=== PATIENT | female | born 1985 | race Caucasian/White ===

== ENCOUNTER 2025-08-28 10:54 | Emergency (ER) | payer OTHER, SELFPAY ==
[2025-08-28 11:02] VITALS: BP 127/96; PULSE 86; RESP 16; TEMP 37.1; O2SAT 100
--- NOTE | 2025-08-28 12:01 | ED_ITS ---
HPI - General Adult General Chief complaint: Unspecified Stated complaint: Migraine/Itching/Bladder Issues Time Seen by Provider: 08/28/25 11:30 Source: patient and RN notes reviewed Mode of arrival: ambulatory Limitations: no limitations History of Present Illness HPI narrative: 40 year old female patient presents today complaining of left frontal/parietal migraine that started yesterday with nausea, resolved after sleeping last night without any medication or treatment. At around midnight last night, she states that her left arm, left leg, and sporadically her right leg, have been experiencing some pulsing, burning, and buzzing sensations through the day. They have slightly improved since onset. She denies any additional symptoms such as chest pain, shortness of breath, nausea, vomiting, vision changes. She also complains of 3 day history of frequency, urgency, and suprapubic pressure. Reports she stopped caffeine consumption 4 days ago. Related Data Home Medications ?Medication ?Instructions ?Recorded ?Confirmed ?Last Taken ?Type tacrolimus 0.1 % topical ointment topical 08/28/25 Un known History Allergies Allergy/AdvReac Type Severity Reaction Status Date / Time No Known Allergies Allergy Verified 08/28/25 11:33 [facility] Comments At time of signature, I have reviewed and agree with nursing past medical, surgical, social and family history unless otherwise noted. Please see nursing chart for further information. There is no relevant family history pertinent to the presenting complaint Exam Narrative: GENERAL: Well-appearing, well-nourished, and in no acute distress. HEAD: Normocephalic, atraumatic. EYES: EOMI. No redness or drainage. Conjunctivae normal. ENT: Mucous membranes pink and moist. Nares clear. No rhinorrhea. TMs normal bilaterally. Throat normal. Uvula midline. NECK: Normal AROM. Supple. No lymphadenopathy. CHEST: No respiratory distress. Clear to auscultation. HEART: Regular rate and rhythm. No murmur appreciated. Normal peripheral pulses. ABDOMEN: Soft, nontender, nondistended, normal active bowel sounds. MUSCULOSKELETAL: No bony tenderness. EXTREMITIES: Normal range of motion. No edema. SKIN: Warm, dry, no rash. Capillary refill normal. Normal skin turgor. NEURO: No focal deficits. Alert and oriented x3. Gait steady. Hand pie maker machine equal and strong. 5/5 strength in BLE. Nose-finger test normal. Heel-nguyễn test normal. PSYCH: Normal affect. No signs of depression or anxiety. Course Course Level of Care: Express Care Visit Vital Signs Vital signs: Vital Signs Temperature 98.8 F 08/28/25 11:02 Pulse Rate 86 08/28/25 11:02 Respiratory Rate 16 08/28/25 11:02 Blood Pressure 127/96 H 08/28/25 11:02 Pulse Oximetry 100 08/28/25 11:02 Oxygen Delivery Room Air 08/28/25 11:02 Temperature 98.8 F 08/28/25 11:02 Pulse Rate 86 08/28/25 11:02 Respiratory Rate 16 08/28/25 11:02 Blood Pressure 127/96 H 08/28/25 11:02 Pulse Oximetry 100 08/28/25 11:02 Oxygen Delivery Room Air 08/28/25 11:02 Reviewed Medical Decision Making MDM Narrative Medical decision making narrative: 10 year old female patient presents today complaining of left frontal/parietal migraine that started yesterday with nausea, resolved after sleeping last night without any medication or treatment. At around midnight last night, she states that her left arm, left leg, and sporadically her right leg, have been experiencing some pulsing, burning, and buzzing sensations through the day. They have slightly improved since onset. She denies any additional symptoms such as chest pain, shortness of breath, nausea, vomiting, vision changes. She also complains of 3 day history of frequency, urgency, and suprapubic pressure. Reports she stopped caffeine consumption 4 days ago. Patient's exam, including thorough neuro exam, is completely normal. UA shows 2+ ketones and trace blood. Patient is at the very end of her menstrual cycle. At this time, we will wait for the urine culture results to treat for UTI. Offered ER transfer for further evaluation of patient's leg and arm symptoms. Patient declines at this time. States she will proceed there if symptoms worsen or persist. VSS. Differential Diagnosis Differential Diagnosis: complex migraine, cluster headache, UTI, vaginitis Vital Signs Vital Signs: Vital Signs Temperature 98.8 F 08/28/25 11:02 Pulse Rate 86 08/28/25 11:02 Respiratory Rate 16 08/28/25 11:02 Blood Pressure 127/96 H 08/28/25 11:02 Pulse Oximetry 100 08/28/25 11:02 Oxygen Delivery Room Air 08/28/25 11:02 Temperature 98.8 F 08/28/25 11:02 Pulse Rate 86 08/28/25 11:02 Respiratory Rate 16 08/28/25 11:02 Blood Pressure 127/96 H 08/28/25 11:02 Pulse Oximetry 100 08/28/25 11:02 Oxygen Delivery Room Air 08/28/25 11:02 Lab Data Lab results reviewed: Yes I reviewed the patient's lab results. Labs: Lab Results 08/28/25 Range/Units 12:05 POC Urine Color Yellow POC Urine Clarity Clear POC Urine pH 5.5 POC Ur Specif [place] 1.010 POC Urine Protein Negative (Negative) POC Ur Glucose (UA) Negative (Negative) POC Urine Ketones 2+ (Negative) POC Urine Blood Trace (Negative) POC Urine Nitrite Negative (Negative) POC Urine Bilirubin Negative (Negative) POC Urine Urobilinogen 0.2 POC U Leukocyte Esteras Negative (Negative) Critical Care Time Critical Care Time Critical Care Time: No Discharge Plan Discharge Clinical Impression: Migraine Qualifiers: Migraine type: unspecified Status migrainosus presence: without status migrainosus Intractability: not intractable Qualified Code(s): G43.909 - Migraine, unspecified, not intractable, without status migrainosus Patient Disposition: Home Condition: Stable Instructions: Migraine Headache (ED) Additional Instructions: You have declined transfer to the ER today. If you change your mind or symptoms worsen to include chest pain, shortness of breath, vision changes, severe headache that is not consistent with your migraines, weakness, please go to the ER immediately further evaluation. Patient Language: Com[place]an Prescriptions: No Action tacrolimus 0.1 % ointment TOPICAL Follow-up/Referrals: PHYSICIAN,[employer] [facility] [facility] [Primary Care Provider, Internal Medicine] Stand Alone Forms: Work/School Release IP Time of Disposition: 11:55
[2025-08-28 12:08] LABS: EDUAAPPEAR Clear; EDUABILI Negative (Negative); EDUABLOOD Trace (Negative); EDUACOLOR1 Yellow; EDUAGLUCOSE Negative (Negative); EDUAKETONE 2+ (Negative); EDUALEUKO Negative (Negative); EDUANITRATE Negative (Negative); EDUAPH 5.5; EDUAPROTEIN Negative (Negative); EDUASPGRAVITY 1.010; EDUAUROBILI 0.2
== END 2025-08-28 12:00 | disposition home or self-care (01) ==
PROVIDERS: Emergency Provider Nurse Practitioner
DX: G43.909 Migraine, unspecified, not intractable, without status migrainosus (principal); R35.0 Frequency of micturition; R39.15 Urgency of urination
CPT/HCPCS: 81003; 87086; 99213; G0463

== ENCOUNTER 2025-08-28 19:20 | Observation (INO) | payer OTHER, SELFPAY ==
--- NOTE | ~2025-08-28 | MR_ITS ---
EXAMINATION: MR brain/brain stem wo con DATE: 08/30/2025 10:21 INDICATION: Left-sided migraine headache. Left-sided numbness. TECHNIQUE: Magnetic resonance imaging (MRI) of the brain and brainstem was performed without intravenous contrast. COMPARISON: None. FINDINGS: There are scattered areas of nonspecific increased T2-weighted signal intensity in the cerebral white matter. There is no intracranial hemorrhage, acute infarction, or abnormal intracranial mass lesion. The ventricles are normal in size. The orbits are normal. There is mild mucosal thickening in the paranasal sinuses. The mastoid air cells are normal. IMPRESSION: 1. Mild nonspecific cerebral white matter disease. The differential diagnosis includes premature chronic small vessel ischemic disease (especially if the patient has cardiovascular risk factors), demyelinating disease such as multiple sclerosis, drug abuse, vasculitis, or reactive astrocytosis (gliosis) secondary to nonspecific etiology. Reviewed, dictated and finalized at location E. IMPRESSION: 1. Mild nonspecific cerebral white matter disease. The differential diagnosis i ncludes premature chronic small vessel ischemic disease (especially if the shivani ent has cardiovascular risk factors), demyelinating disease such as multiple sc lerosis, drug abuse, vasculitis, or reactive astrocytosis (gliosis) secondary t o nonspecific etiology.
--- NOTE | ~2025-08-28 | XR_ITS ---
Examination: XR chest 1V portable Clinical History: Weakness Comparison: None Technique: Portable AP Findings: Heart size normal. Lungs clear. No acute bony abnormality. Round radiopaque object overlying central abdomen, presumably external but recommend correlation. IMPRESSION: 1. No acute cardiopulmonary findings given portable technique. Reviewed, dictated and finalized at location R.
--- NOTE | ~2025-08-28 | CT_ITS ---
EXAMINATION: CT chest abdomen pelvis w con DATE: 08/29/2025 10:11 INDICATION: Chest pain. Leukocytosis. TECHNIQUE: Computed tomography (CT) of the chest, abdomen, and pelvis was performed with 100 mL Omnipaque 350 intravenous contrast. Automated exposure control and iterative reconstruction technique were employed. The dose-length product was 465.84 mGy-cm. COMPARISON: None FINDINGS: CHEST CT: There is no pneumonia or pleural effusion. The heart size is normal. No pericardial effusion. There is mild thoracic spondylosis. ABDOMEN/PELVIS CT: The liver, gallbladder, spleen, pancreas, adrenal glands, and right kidney are normal. There are cysts in left kidney measuring up to 10 mm. There are no dilated loops of bowel. The appendix is normal. There are no pathologically enlarged lymph nodes. There is no free intraperitoneal fluid. There is mild osteoarthritis of the hips. IMPRESSION: 1. No etiology for the patient's symptoms. Reviewed, dictated and finalized at location E.
[2025-08-28 19:20] VITALS: BP 132/86; PULSE 103; PULSE 94; RESP 20; TEMP 36.8; O2SAT 100
--- NOTE | 2025-08-28 19:34 | ECG_ITS ---
Test Date: 2025-08-28 19:40:18 Measurements Intervals [place] Rate: 83 P: 62 TN: 190 QRS: -11 QRSD: 115 T: 30 QT: 350 QTc: 413 Interpretive Statements SINUS RHYTHM WITH MARKED SINUS ARRHYTHMIA INCOMPLETE RIGHT BUNDLE BRANCH BLOCK BASELINE ARTIFACT- III, V6 BORDERLINE ECG No previous ECG available for comparison Electronically Signed On 08-29-2025 06:15:29 CDT by Torey Davila D.O.
[2025-08-28 20:01] LABS: Hematocrit 41.0 % (35.0-49.0); Hemoglobin 13.9 g/dL (12.0-15.0); Immature Granulocyte Percent A 0.4 % (0.0-0.0); Lymphocytes Absolute Auto 2.97 K/mm3 (1.10-4.50); Mean Corpuscular HGB Conc 33.9 g/dL (32-36); Mean Corpuscular Hemoglobin 30.8 pg (27.0-31.0); Mean Corpuscular Volume 90.7 fL (78.0-102.0); Nucleated Red Blood Cells Absolute Auto 0.00 K/mm3 (0.00-0.00); Nucleated Red Blood Cells Perc 0.0 % (0-0.0); Platelet Count Result 336 K/mm3 (150-420); Red Blood Count 4.52 M/mm3 (4.20-5.40); White Blood Count 14.4 K/mm3 (4.8-10.8)
[2025-08-28] MEDS: SODIUM CHLORIDE 0.9% IV 1,000 ML 999 ML IV CONT (20:12)
[2025-08-28 20:24] LABS: Alanine Aminotransferase 19 U/L (6-35); Albumin Level 4.4 g/dL (3.5-5.1); Alkaline Phosphatase 54 U/L (38-126); Anion Gap 13 mmol/L (4-12); Aspartate Amino Transferase 25 U/L (14-36); Bilirubin,Total 0.6 mg/dL (0.2-1.3); Blood Urea Nitrogen 12 mg/dL (7-17); Calcium 9.4 mg/dL (8.4-10.2); Carbon Dioxide 21 mmol/L (22-30); Chloride 104 mmol/L (98-107); Estimated CRCL calculation 88 ml/min; Estimated Glomerular Filt Rate > 60; Glucose 173 mg/dL (65-110); Osmolality Calculated 289 mOsm/kg (285-295); Potassium 3.3 mmol/L (3.4-5.0); Sodium 138 mmol/L (137-145); Total Protein 7.0 g/dL (6.3-8.2)
[2025-08-28 20:31] LABS: Add Urine Microscopic? NO; Appearance Urine Clear (Clear); Glucose Urine UA Negative (Negative); Leukocyte Esterase Ur Negative LEU/UL (Negative); Nitrate Urine Negative (Negative); Specific Grav Ur <= 1.005 (1.010-1.020)
[2025-08-28 20:40] LABS: Pregnancy On Board Control Positive
[2025-08-28 20:43] LABS: Influenza A QL RT-PCR Negative (Negative); Influenza B QL RT-PCR Negative (Negative); RSV RNA, RT-PCR Negative (Negative); SARS-CoV-2 RNA PCR Negative (Negative)
[2025-08-28 21:01] LABS: Troponin I < 0.012 ng/mL (0.000-0.034)
[2025-08-28] MEDS: POTASSIUM BICARBONATE 25 MEQ TABEF 50 MEQ PO (21:13)
--- NOTE | 2025-08-28 21:16 | ED_ITS ---
HPI - General Adult General Chief complaint: Anxiety Stated complaint: palpitations Time Seen by Provider: 08/28/25 19:34 Source: patient and family Mode of arrival: ambulatory Limitations: no limitations History of Present Illness HPI narrative: This is a 41-year-old female with no significant past medical history presents with some feeling faint and weakness and anxious. There is currently no nausea vomiting no fever chills no chest pain or shortness of breath no palpitations no diarrhea constipation no dysuria or hematuria. No flank pain. Onset (ago): day(s) Severity: moderate Related Data Home Medications ?Medication ?Instructions ?Recorded ?Confirmed ?Last Taken ?Type tacrolimus 0.1 % topical ointment topical 08/28/25 Un known History Allergies Allergy/AdvReac Type Severity Reaction Status Date / Time No Known Allergies Allergy Verified 08/28/25 21:06 Review of Systems 2 Review of Systems: All systems reviewed & are unremarkable except as noted in HPI and below PMFSH Past Medical History Medical History Migraine Social History Social History Substance use type: does not use Exam 2 Const: General: healthy appearing Nutritional Appearance: well nourished Orientation/consciousness: patient oriented x3 Limitations: no limitations HENMT: Head: normal to inspection Eyes: Conjunctivae: conjunctivae normal Pupils: Equal, round and reactive pupils present EOM: EOMs intact bilaterally Neck: Neck: normal visual inspection, no lymphadenopathy and no meningeal signs Chest: Chest palpation & inspection: normal inspection of the chest Resp: Effort & Inspection: normal respiratory effort Auscultation: clear to auscultation bilaterally Cardio: Rate: regular rate Rhythm: regular rhythm GI: GI Palp: Yes Soft to palpation Auscultation: normal bowel sounds : General: Yes bladder normal to palpation Back/Spine/Pelvis: Back: no CVA tenderness Skin: General skin exam: normal color Rashes: no rashes Wounds: no wounds Neuro: General: patient oriented x3, moves all extremities and no meningeal signs Extrem: General: normal to inspection, no clubbing, cyanosis or edema and no pedal edema Psych: Affect: Anxious affect present Course Course Emergency Course: Medical decision making narrative: The patient was evaluated by myself in the emergency department. History obtained from the patient who is an independent historian and physical exam performed witnessed by a nurse. Patient had an EKG that shows that she had a right incomplete right bundle-branch block chest x-ray shows no acute cardiopulmonary abnormality. Labs show potassium of 3.3 and replaced with some [place] [address] with an elevated lactic acid blood cultures obtained, negative troponin negative COVID. Will start ceftriaxone for urinary tract infection, IV fluids with normal saline for dehydration. Repeat assessment patient is stable no acute distress Symptoms are stable repeat vitals stable Patient agrees with discussion after shared medical decision making patient and family agree with admission. All questions answered to the patient's satisfaction. Will admit to hospitalist service Vital Signs Vital signs: Vital Signs Temperature 36.8 C 08/28/25 19:20 Pulse Rate 94 08/28/25 19:20 Respiratory Rate 20 08/28/25 19:20 Blood Pressure 132/86 08/28/25 19:20 Pulse Oximetry 100 08/28/25 19:20 Oxygen Delivery Room Air 08/28/25 19:20 Temperature 36.8 C 08/28/25 19:20 Pulse Rate 103 H 08/28/25 19:20 Respiratory Rate 20 08/28/25 19:20 Blood Pressure 132/86 08/28/25 19:20 Pulse Oximetry 100 08/28/25 19:20 Oxygen Delivery Room Air 08/28/25 19:20 Medical Decision Making Vital Signs Vital Signs: Vital Signs Temperature 36.8 C 08/28/25 19:20 Pulse Rate 94 08/28/25 19:20 Respiratory Rate 20 08/28/25 19:20 Blood Pressure 132/86 08/28/25 19:20 Pulse Oximetry 100 08/28/25 19:20 Oxygen Delivery Room Air 08/28/25 19:20 Temperature 36.8 C 08/28/25 19:20 Pulse Rate 103 H 08/28/25 19:20 Respiratory Rate 20 08/28/25 19:20 Blood Pressure 132/86 08/28/25 19:20 Pulse Oximetry 100 08/28/25 19:20 Oxygen Delivery Room Air 08/28/25 19:20 Lab Data 08/28/25 19:57 08/28/25 19:58 Labs: Lab Results 08/28/25 08/28/25 08/28/25 Range/Units 19:57 19:58 20:26 WBC 14.4 H (4.8-10.8) K/mm3 RBC 4.52 (4.20-5.40) M/mm3 Hgb 13.9 (12.0-15.0) g/dL Hct 41.0 (35.0-49.0) % MCV 90.7 (78.0-102.0) fL MCH 30.8 (27.0-31.0) pg MCHC 33.9 (32-36) g/dL RDW 12.6 (11.6-14.4) % Plt Count 336 (150-420) K/mm3 MPV 9.3 (9.2-11.8) fl Immature Gran % (Auto) 0.4 H (0.0-0.0) % Neut % (Auto) 74.3 H (50.0-70.0) % Lymph % (Auto) 20.7 (18.0-42.0) % [place] % (Auto) 4.0 (2.0-11.0) % Eos % (Auto) 0.3 L (1.0-6.0) % Baso % (Auto) 0.3 (0.0-1.0) % Lymph # (Auto) 2.97 (1.10-4.50) K/mm3 [place] # (Auto) 0.57 (0.10-0.90) K/mm3 Eos # (Auto) 0.05 (0.02-0.50) K/mm3 Baso # (Auto) 0.04 (0.00-0.10) K/mm3 Abs Immat Gran (auto) 0.06 H (0.00-0.00) K/mm3 Absolute Neuts (auto) 10.69 H (1.70-7.20) K/mm3 Absolute Nucleated RBC 0.00 (0.00-0.00) K/mm3 Nucleated RBC % 0.0 (0-0.0) % Sodium 138 (137-145) mmol/L Potassium 3.3 L (3.4-5.0) mmol/L Chloride 104 (98-107) mmol/L Carbon Dioxide 21 L (22-30) mmol/L Anion Gap 13 H (4-12) mmol/L BUN 12 (7-17) mg/dL Creatinine 0.74 (0.7-1.0) mg/dL Estim Creat Clear Calc 88 ml/min Estimated GFR > 60 (59 - ) Glucose 173 H (65-110) mg/dL Calculated Osmolality 289 (285-295) mOsm/kg Lactic Acid 2.7 H (0.4-2.0) mmol/L Calcium 9.4 (8.4-10.2) mg/dL Total Bilirubin 0.6 (0.2-1.3) mg/dL AST 25 (14-36) U/L ALT 19 (6-35) U/L Alkaline Phosphatase 54 (38-126) U/L Troponin I (0.000-0.034) ng/mL Total Protein 7.0 (6.3-8.2) g/dL Albumin 4.4 (3.5-5.1) g/dL Urine Color Light yellow (Yellow) Urine Appearance Clear (Clear) Urine pH 6.5 (5.0-8.0) Ur Specific [place] <= 1.005 L (1.010-1.020) Urine Protein Negative (Negative) Urine Glucose (UA) Negative (Negative) Urine Ketones Negative (Negative) Ur Blood (Man) Trace-intact H (Negative) Urine Nitrate Negative (Negative) Urine Bilirubin Negative (Negative) Urine Urobilinogen 0.2 (0.2-1.0) mg/dL Leukocyte Esterase Rfl Negative (Negative) ANASTASIIA/UL Urine Test Negative Influenza A (RT-PCR) Negative (Negative) Influenza B (RT-PCR) Negative (Negative) RSV (RT-PCR) Negative (Negative) SARS-CoV-2 RNA (RT-PCR) Negative (Negative) 08/28/25 Range/Units 20:40 WBC (4.8-10.8) K/mm3 RBC (4.20-5.40) M/mm3 Hgb (12.0-15.0) g/dL Hct (35.0-49.0) % MCV (78.0-102.0) fL MCH (27.0-31.0) pg MCHC (32-36) g/dL RDW (11.6-14.4) % Plt Count (150-420) K/mm3 MPV (9.2-11.8) fl Immature Gran % (Auto) (0.0-0.0) % Neut % (Auto) (50.0-70.0) % Lymph % (Auto) (18.0-42.0) % [place] % (Auto) (2.0-11.0) % Eos % (Auto) (1.0-6.0) % Baso % (Auto) (0.0-1.0) % Lymph # (Auto) (1.10-4.50) K/mm3 [place] # (Auto) (0.10-0.90) K/mm3 Eos # (Auto) (0.02-0.50) K/mm3 Baso # (Auto) (0.00-0.10) K/mm3 Abs Immat Gran (auto) (0.00-0.00) K/mm3 Absolute Neuts (auto) (1.70-7.20) K/mm3 Absolute Nucleated RBC (0.00-0.00) K/mm3 Nucleated RBC % (0-0.0) % Sodium (137-145) mmol/L Potassium (3.4-5.0) mmol/L Chloride (98-107) mmol/L Carbon Dioxide (22-30) mmol/L Anion Gap (4-12) mmol/L BUN (7-17) mg/dL Creatinine (0.7-1.0) mg/dL Estim Creat Clear Calc ml/min Estimated GFR (59 - ) Glucose (65-110) mg/dL Calculated Osmolality (285-295) mOsm/kg Lactic Acid (0.4-2.0) mmol/L Calcium (8.4-10.2) mg/dL Total Bilirubin (0.2-1.3) mg/dL AST (14-36) U/L ALT (6-35) U/L Alkaline Phosphatase (38-126) U/L Troponin I < 0.012 (0.000-0.034) ng/mL Total Protein (6.3-8.2) g/dL Albumin (3.5-5.1) g/dL Urine Color (Yellow) Urine Appearance (Clear) Urine pH (5.0-8.0) Ur Specific [place] (1.010-1.020) Urine Protein (Negative) Urine Glucose (UA) (Negative) Urine Ketones (Negative) Ur Blood (Man) (Negative) Urine Nitrate (Negative) Urine Bilirubin (Negative) Urine Urobilinogen (0.2-1.0) mg/dL Leukocyte Esterase Rfl (Negative) ANASTASIIA/UL Urine Test Influenza A (RT-PCR) (Negative) Influenza B (RT-PCR) (Negative) RSV (RT-PCR) (Negative) SARS-CoV-2 RNA (RT-PCR) (Negative) Critical Care Time Critical Care Time Critical Care Time: No Discharge Plan Discharge Clinical Impression: Acute anxiety, Dehydration, Acute hypokalemia UTI (urinary tract infection) Qualifiers: Urinary tract infection type: site unspecified Hematuria presence: without hematuria Qualified Code(s): N39.0 - Urinary tract infection, site not specified Patient Disposition: Acute Care Hospital Condition: Guarded Prognosis Patient Language: [place] Prescriptions: No Action tacrolimus 0.1 % ointment TOPICAL Follow-up/Referrals: Klever Carter MD [Primary Care Provider, Internal Medicine] Time of Disposition: 21:21
--- NOTE | 2025-08-28 21:20 | PC.NURSE ---
waiting on blood cultures to be drawn before antibiotic administration, baron in lab called and informed of pending cultures
[2025-08-28 21:23] VITALS: PULSE 70; RESP 16; O2SAT 98
--- NOTE | 2025-08-28 21:37 | PC.NURSE ---
Called [facility], given room 26 for admission, room ready, awaiting patient arrival.
[2025-08-28 21:44] VITALS: BMI 27.1
[2025-08-28 22:00] VITALS: BP 116/68; PULSE 76; RESP 16; TEMP 36.8; O2SAT 98
--- NOTE | 2025-08-28 22:05 | ADMGEN ---
This patient, Carla Bhatia, was admitted to 2nd Floor Room 226-1. Patient/family oriented to hospital policies and general routines including ID bracelet, bed and alarms, visiting hours, pain management, procedures, bathroom and other care routines, personal items, smoking policy, room service/diet, and visiting hours. Information on how to activate the Rapid Response Team has been discussed. Patient/Family are encouraged to report perceived risks to care and to ask questions if they do not understand what they are told or what they should do.
[2025-08-28] MEDS: SODIUM CHLORIDE 0.9% IV 1,000 ML 100 ML IV CONT (22:17)
[2025-08-28] MEDS: cefTRIAXone 1 GM in SODIUM CHLORIDE 0.9% IV 50 ML 100 ML IVPB (22:17)
[2025-08-28] MEDS: ALPRAZolam (*CRX) 0.5 MG TABLET PO (22:48)
[2025-08-29] VITALS: BP 116/68; PULSE 76; RESP 16; TEMP 36.8; O2SAT 98
[2025-08-29 05:46] LABS: Hematocrit 39.9 % (35.0-49.0); Hemoglobin 13.0 g/dL (12.0-15.0); Immature Granulocyte Percent A 0.4 % (0.0-0.0); Lymphocytes Absolute Auto 4.32 K/mm3 (1.10-4.50); Mean Corpuscular HGB Conc 32.6 g/dL (32-36); Mean Corpuscular Hemoglobin 30.4 pg (27.0-31.0); Mean Corpuscular Volume 93.2 fL (78.0-102.0); Nucleated Red Blood Cells Absolute Auto 0.00 K/mm3 (0.00-0.00); Nucleated Red Blood Cells Perc 0.0 % (0-0.0); Platelet Count Result 321 K/mm3 (150-420); Red Blood Count 4.28 M/mm3 (4.20-5.40); White Blood Count 13.4 K/mm3 (4.8-10.8)
[2025-08-29 06:00] VITALS: BP 118/70; PULSE 87; RESP 16; TEMP 36.7; O2SAT 98
[2025-08-29 06:01] LABS: Alanine Aminotransferase 15 U/L (6-35); Albumin Level 4.0 g/dL (3.5-5.1); Alkaline Phosphatase 46 U/L (38-126); Anion Gap 7 mmol/L (4-12); Aspartate Amino Transferase 21 U/L (14-36); Bilirubin,Total 1.0 mg/dL (0.2-1.3); Blood Urea Nitrogen 10 mg/dL (7-17); Calcium 8.7 mg/dL (8.4-10.2); Carbon Dioxide 25 mmol/L (22-30); Chloride 108 mmol/L (98-107); Estimated CRCL calculation 88 ml/min; Estimated Glomerular Filt Rate > 60; Glucose 84 mg/dL (65-110); Osmolality Calculated 288 mOsm/kg (285-295); Potassium 4.3 mmol/L (3.4-5.0); Sodium 140 mmol/L (137-145); Total Protein 6.4 g/dL (6.3-8.2)
[2025-08-29 06:11] LABS: Hemoglobin A1C 5.5 % (<5.7)
[2025-08-29 08:00] VITALS: BP 123/78; PULSE 67; RESP 16; TEMP 36.8; O2SAT 100
[2025-08-29] MEDS: SODIUM CHLORIDE 0.9% IV 1,000 ML 100 ML IV CONT (08:38)
[2025-08-29 09:51] LABS: SPREG INTERNAL CONTROL Positive; Serum Qual hCG Negative
--- NOTE | 2025-08-29 11:33 | P.HP_ITS ---
H&P: HPI History of Present Illness Date/Time: 08/29/25 11:33 Chief Complaint: palpitations Narrative: Patient is a 40 year old female with past medical history of migraines. Patient presented to the ER with complaints of anxiety and palpitations. In the ER the patient's labwork showed a wbc count 14.4, lactic acid 2.7, potassium 3.3 and glucose 173. Patient was admitted for acute cystitis and was started on IV ceftriaxone and IV fluids. Today patient reports additional complaints including an onset of left sided heaviness, numbness and tingling that is affecting her entire left side that started yesterday morning. She also reports lightheadedness and episodes of nausea and vomiting. Patient also reported lower abdominal tenderness on exam and that she had experienced some abdominal pain and urinary frequency a few days prior to presenting to the hospital. Patient's UA reviewed and appears negative. Stop IV ceftriaxone. Due to patient's elevated wbc count and lactic acidosis combined with abdominal tenderness on exam I will order a CT chest/abdomen/pelvis with contrast to rule out infection. Patient denies any open wounds. Patient will be placed on telemetry monitoring. Patient will need an MRI brain to rule out acute infarcts. Patient will be admitted to [facility] for observation and treatment. Review of Systems Review of Systems: All systems reviewed & are unremarkable except as noted in HPI and below PMFSH Past Medical History Medical History Migraine Social History Social History Smoking status: Former smoker Tobacco type: cigarettes Alcohol intake: unknown Substance use: never Substance use type: does not use Lack of Transportation: YES Lack of Food: Never True Current Housing: I Have Housing Concerned About Future Housing: No Difficulty Paying Gas/Electric Bills: No Difficulty Paying for Meds: No Currently Unemployed: No Education: Associate Degree Difficulty w/ Childcare or Family Care: No Spiritual care concerns: No Meds Home Medications and Allergies Home Medications ?Medication ?Instructions ?Recorded ?Confirmed ?Type tacrolimus 0.1 % topical ointment 1 applic topical Q12 H PRN eczema 08/28/25 08/28/25 History Allergies Allergy/AdvReac Type Severity Reaction Status Date / Time No Known Allergies Allergy Verified 08/28/25 22:30 Vital Signs Vital Signs - 24 hr 08/28/25 19:20 08/28/25 19:20 08/28/25 21:23 Temperature 98.3 F Pulse Rate 94 103 H 70 Respiratory Rate 20 20 16 Blood Pressure 132/86 132/86 Pulse Oximetry 100 100 98 Oxygen Delivery Room Air Room Air Room Air 08/28/25 22:00 08/29/25 00:00 08/29/25 06:00 Temperature 98.2 F 98.2 F 98.1 F Pulse Rate 76 76 87 Respiratory Rate 16 16 16 Blood Pressure 116/68 116/68 118/70 Pulse Oximetry 98 98 98 Oxygen Delivery Room Air Room Air Room Air 08/29/25 08:00 Temperature 98.3 F Pulse Rate 67 Respiratory Rate 16 Blood Pressure 123/78 Pulse Oximetry 100 Oxygen Delivery Room Air Exam Const: Other: patient is anxious at times during visit, healthy appearing female HENMT: Face/Nose/Sinus: Normal nares present Mouth: Yes moist mucous memb ranes Eyes: General: appearance normal, both eyes and all related structures Sclera: sclerae normal Neck: Neck: supple Resp: Effort & Inspection: normal respiratory effort Auscultation: clear to auscultation bilaterally Cardio: Rate: regular rate Rhythm: regular rhythm GI: GI Palp: Yes Soft to palpation Auscultation: normal bowel sounds : Other: tenderness in lower abdomen on palpation, no signs of acute abdomen Skin: General skin exam: normal color and no rashes or lesions noted Neuro: General: gait normal Speech: normal speech Motor exam (neuro): 5/5 motor strength present throughout Sensory Exam: normal sensation Extrem: General: normal to inspection Psych: Mental Status: mental status grossly normal Affect: Anxious affect present H&P: Results Labs Labs: Short CBC 08/28/25 08/29/25 Range/Units 19:57 05:27 WBC 14.4 H 13.4 H (4.8-10.8) K/mm3 Hgb 13.9 13.0 (12.0-15.0) g/dL Hct 41.0 39.9 (35.0-49.0) % Plt Count 336 321 (150-420) K/mm3 BMP 08/28/25 08/29/25 19:58 05:27 Sodium 138 140 Potassium 3.3 L 4.3 Chloride 104 108 H Carbon Dioxide 21 L 25 BUN 12 10 Creatinine 0.74 0.73 Glucose 173 H 84 Calcium 9.4 8.7 Cardiac Enzymes 08/28/25 Range/Units 20:40 Troponin I < 0.012 (0.000-0.034) ng/mL Liver Function 08/28/25 08/29/25 Range/Units 19:58 05:27 Total Bilirubin 0.6 1.0 (0.2-1.3) mg/dL AST 25 21 (14-36) U/L ALT 19 15 (6-35) U/L Alkaline Phosphatase 54 46 (38-126) U/L Albumin 4.4 4.0 (3.5-5.1) g/dL Urine 08/28/25 Range/Units 20:26 Urine Color Light yellow (Yellow) Urine Appearance Clear (Clear) Urine pH 6.5 (5.0-8.0) Ur Specific [place] <= 1.005 L (1.010-1.020) Urine Protein Negative (Negative) Urine Glucose (UA) Negative (Negative) Imaging Chest x-ray: Radiologist's impression: Ordering Physician: Jakob Pradhan MD Date of Service: 08/28/25 Procedure(s): XR chest 1V portable Accession Number(s): [id number] cc: Jakob Pradhan MD; UNKNOWN,DOCTOR~ Examination: XR chest 1V portable Clinical History: Weakness Comparison: None Technique: Portable AP Findings: Heart size normal. Lungs clear. No acute bony abnormality. Round radiopaque object overlying central abdomen, presumably external but recommend correlation. IMPRESSION: 1. No acute cardiopulmonary findings given portable technique. Reviewed, dictated and finalized at location R. Assessment and Plan Assessment and plan (1) UTI (urinary tract infection): Qualifiers: Hematuria presence: without hematuria Urinary tract infection type: site unspecified Qualified Code(s): N39.0 - Urinary tract infection, site not specified Code(s): N39.0 - Urinary tract infection, site not specified Status: Acute Assessment and Plan: patient given IV ceftriaxone in ED UA reviewed, no signs of infection urine culture pending stop antibiotics for now IV fluids f/u urine culture and treat if indicated (2) Leukocytosis: Code(s): D72.829 - Elevated white blood cell count, unspecified Status: Acute Assessment and Plan: wbc 14.4 on admission UA without signs of infection chest x-ray without acute abnormalities patient denies any open wounds patient with lower abdominal tenderness on exam, check CT chest/abdomen/pelvis with contrast IV fluids AM labs (3) Lactic acidosis: Code(s): E87.20 - Acidosis, unspecified Status: Acute Assessment and Plan: lactic acid 2.7 on arrival s/p IV fluids and IV ceftriaxone repeat lactic acid 1.0 monitor (4) Acute hypokalemia: Code(s): E87.6 - Hypokalemia Status: Acute Assessment and Plan: k 3.3 on arrival s/p PO potassium chloride AM labs (5) Acute anxiety: Code(s): F41.9 - Anxiety disorder, unspecified Status: Acute Assessment and Plan: patient presented with complaints of acute anxiety and palpitations patient reports she has never taken medication at home for anxiety patient reports new stressors at work in the last few weeks s/p PO Xanax in the ED, change to PRN hydroxyzine patient will need to f/u with PCP for further treatment as outpatient (6) Palpitations: Code(s): R00.2 - Palpitations Status: Acute Assessment and Plan: telemetry ordered s/p EKG with incomplete RBBB (7) Sensation of heaviness in extremities: Code(s): R29.898 - Other symptoms and signs involving the musculoskeletal system Status: Acute Assessment and Plan: patient reported heaviness, numbness and tingling to left side of body that started yesterday morning symptoms have improved but still present during my visit check MRI brain, plan for tomorrow (8) Transient neurological symptoms: Code(s): R29.818 - Other symptoms and signs involving the nervous system Status: Acute Assessment and Plan: see above Quality VTE Prophylaxis VTE prophylaxis: pharmacologic ordered
[2025-08-29 13:31] LABS: Free T4 Free Thyroxine 1.66 ng/dL (0.78-2.19)
[2025-08-29 13:45] LABS: Thyroid Stimulating Hormone 2.970 uIU/mL (0.465-4.680)
[2025-08-29 14:00] VITALS: BP 117/76; PULSE 60; RESP 18; TEMP 36.7; O2SAT 98
[2025-08-29 16:00] VITALS: BP 110/70; PULSE 74; RESP 18; TEMP 36.7; O2SAT 100
[2025-08-29] MEDS: ACETAMINOPHEN 325 MG TABLET 650 MG PO (17:52)
[2025-08-29 20:00] VITALS: PULSE 73; PULSE 80; RESP 18; O2SAT 99
[2025-08-30] VITALS: BP 117/67; PULSE 73; PULSE 81; RESP 16; TEMP 36.6; O2SAT 98
[2025-08-30 04:00] VITALS: PULSE 91
[2025-08-30 06:02] LABS: Hematocrit 45.1 % (35.0-49.0); Hemoglobin 14.7 g/dL (12.0-15.0); Immature Granulocyte Percent A 0.5 % (0.0-0.0); Lymphocytes Absolute Auto 3.42 K/mm3 (1.10-4.50); Mean Corpuscular HGB Conc 32.6 g/dL (32-36); Mean Corpuscular Hemoglobin 30.4 pg (27.0-31.0); Mean Corpuscular Volume 93.4 fL (78.0-102.0); Nucleated Red Blood Cells Absolute Auto 0.00 K/mm3 (0.00-0.00); Nucleated Red Blood Cells Perc 0.0 % (0-0.0); Platelet Count Result 359 K/mm3 (150-420); Red Blood Count 4.83 M/mm3 (4.20-5.40); White Blood Count 12.6 K/mm3 (4.8-10.8)
[2025-08-30 06:28] LABS: Alanine Aminotransferase 20 U/L (6-35); Albumin Level 4.9 g/dL (3.5-5.1); Alkaline Phosphatase 61 U/L (38-126); Anion Gap 9 mmol/L (4-12); Aspartate Amino Transferase 35 U/L (14-36); Bilirubin,Total 0.7 mg/dL (0.2-1.3); Blood Urea Nitrogen 20 mg/dL (7-17); Calcium 9.4 mg/dL (8.4-10.2); Carbon Dioxide 25 mmol/L (22-30); Chloride 107 mmol/L (98-107); Estimated CRCL calculation 76 ml/min; Estimated Glomerular Filt Rate > 60; Glucose 95 mg/dL (65-110); Osmolality Calculated 294 mOsm/kg (285-295); Potassium 4.1 mmol/L (3.4-5.0); Sodium 141 mmol/L (137-145); Total Protein 10.0 g/dL (6.3-8.2)
[2025-08-30 08:00] VITALS: BP 118/60; PULSE 68; PULSE 98; RESP 18; TEMP 36.8; O2SAT 99
[2025-08-30] MEDS: ALPRAZolam (*CRX) 0.5 MG TABLET PO (09:05)
[2025-08-30 12:00] VITALS: PULSE 70
[2025-08-30] MEDS: LORazepam (*CRX) 0.5 MG TABLET PO (12:50)
--- NOTE | 2025-08-30 15:09 | PC.NURSE ---
Patient administered Sumatriptan 50mg today at 1407 for burning and tingling to left side to head and neck. at 1450 patient informs the burning and tingling is completely gone and she feels much better.
[2025-08-30 16:00] VITALS: BP 115/84; PULSE 90; RESP 18; O2SAT 98
--- NOTE | 2025-08-30 16:06 | PM.DS ---
DS: Admitting Diagnosis Discharge Date 08/30/2025 Admitting Diagnosis UTI leukocytosis lactic acidosis Acute hyperkalemia Acute anxiety Palpitations Sensation of heaviness extremity Transient neurological symptoms DS: Discharge Diagnosis Discharge Diagnosis (1) UTI (urinary tract infection): Qualifiers: Hematuria presence: without hematuria Urinary tract infection type: site unspecified Qualified Code(s): N39.0 - Urinary tract infection, site not specified Code(s): N39.0 - Urinary tract infection, site not specified Status: Acute Assessment and Plan: patient given IV ceftriaxone in ED UA reviewed, no signs of infection urine culture pending stop antibiotics for now s/p IV fluids f/u urine culture and treat if indicated (2) Leukocytosis: Code(s): D72.829 - Elevated white blood cell count, unspecified Status: Acute Assessment and Plan: wbc 14.4 on admission UA without signs of infection chest x-ray without acute abnormalities patient denies any open wounds patient with lower abdominal tenderness on exam, check CT chest/abdomen/pelvis with contrast - no etiology for the patient's symptoms s/p IV fluids improved to 12.6, recommend for patient to follow up with PCP for further monitoring (3) Lactic acidosis: Code(s): E87.20 - Acidosis, unspecified Status: Acute Assessment and Plan: lactic acid 2.7 on arrival s/p IV fluids and IV ceftriaxone repeat lactic acid 1.0 resolved (4) Acute hypokalemia: Code(s): E87.6 - Hypokalemia Status: Acute Assessment and Plan: k 3.3 on arrival s/p PO potassium chloride resolved (5) Acute anxiety: Code(s): F41.9 - Anxiety disorder, unspecified Status: Acute Assessment and Plan: patient presented with complaints of acute anxiety and palpitations patient reports she has never taken medication at home for anxiety patient reports new stressors at work in the last few weeks s/p PO Xanax in the ED, change to PRN hydroxyzine patient will need to f/u with PCP for further treatment as outpatient patient did not like PRN hydroxyzine short course of prn Lorazepam given to patient, discussed need for PCP to start her on an antidepressant for longer term control (6) Palpitations: Code(s): R00.2 - Palpitations Status: Acute Assessment and Plan: telemetry ordered s/p EKG with incomplete RBBB no events noted on telemetry (7) Sensation of heaviness in extremities: Code(s): R29.898 - Other symptoms and signs involving the musculoskeletal system Status: Acute Assessment and Plan: patient reported heaviness, numbness and tingling to left side of body that started yesterday morning symptoms have improved but still present during my visit check MRI brain MRI of brain showed 1. Mild nonspecific cerebral white matter disease. The differential diagnosis includes premature chronic small vessel ischemic disease (especially if the patient has cardiovascular risk factors), demyelinating disease such as multiple sclerosis, drug abuse, vasculitis, or reactive astrocytosis (gliosis) secondary to nonspecific etiology recommended for patient to follow up with neurology as outpatient (8) Transient neurological symptoms: Code(s): R29.818 - Other symptoms and signs involving the nervous system Status: Acute Assessment and Plan: see above DS: Summary Hospital Course Reason for hospitalization: palpitations Hospital Course: The patient is a 40-year-old female with a history of migraines who presented with anxiety, palpitations, and new-onset left-sided heaviness, numbness, and tingling. She also reported lightheadedness, nausea, vomiting, and lower abdominal pain with urinary frequency prior to admission. Initial evaluation revealed leukocytosis (WBC 14.4), mild lactic acidosis (lactate 2.7), hypokalemia (K 3.3), and hyperglycemia (glucose 173). She was empirically started on IV ceftriaxone for presumed acute cystitis, but antibiotics were discontinued after urinalysis was negative and urine culture was pending. She received IV fluids, with subsequent normalization of lactic acid and potassium. Abdominal tenderness persisted, prompting CT chest/abdomen/pelvis, which was unremarkable. Cardiac workup included EKG (incomplete RBBB) and telemetry monitoring, both without significant arrhythmia. Patient reported a history of migraines however she does not take medications at home. I gave her a dose of Imitrex with improvement of her neurological symptoms on the left side. Patient discharged with script for Imitrex to try and to follow up with Neurology as these neurological symptoms may be associated to her migraines. Neurologically, she reported persistent but improving left-sided symptoms; MRI brain revealed mild nonspecific cerebral white matter disease without acute infarct or hemorrhage. Her anxiety and palpitations were managed with a short course of lorazepam after hydroxyzine was not tolerated, and she was advised to follow up with her PCP for further outpatient management of anxiety and consideration of antidepressant therapy. She remained hemodynamically stable, with resolution of metabolic derangements and no evidence of infection or acute neurologic event. She was discharged in stable condition with instructions for outpatient neurology and primary care follow-up, and to monitor for any recurrence or progression of neurological symptoms. Time Spent with Patient Time attestation: Total time spent providing and/or coordinating discharge services: 35 Minutes Exam Const: Other: patient is anxious at times during visit, healthy appearing female HENMT: Face/Nose/Sinus: Normal nares present Mouth: Yes moist mucous membranes Eyes: General: appearance normal, both eyes and all related structures Sclera: sclerae normal Neck: Neck: supple Resp: Effort & Inspection: normal respiratory effort Auscultation: clear to auscultation bilaterally Cardio: Rate: regular rate Rhythm: regular rhythm GI: Auscultation: normal bowel sounds : Other: tenderness in lower abdomen on palpation, no signs of acute abdomen Skin: General skin exam: normal color and no rashes or lesions noted Neuro: General: gait normal Speech: normal speech Motor exam (neuro): 5/5 motor strength present throughout Sensory Exam: normal sensation Extrem: General: normal to inspection Psych: Mental Status: mental status grossly normal Affect: Anxious affect present DS: Data Data Completed and Pending Completed studies during hospitalization: CT Scan Report Signed Patient: Carla Bhatia : 1985 MR#: [id number] Age: 40 Acct:[id number] Loc: [facility] 226[facility] ADM Date: 08/28/[address]: Rene Buchanan M.D. Ordering Physician: Dionne Way APRN Date of Service: 08/29/25 Procedure(s): CT chest abdomen pelvis w con Accession Number(s): [id number] cc: Javon Buchanan MD; Klever Carter MD; Dionne Way APRN~ EXAMINATION: CT chest abdomen pelvis w con DATE: 08/29/2025 10:11 INDICATION: Chest pain. Leukocytosis. TECHNIQUE: Computed tomography (CT) of the chest, abdomen, and pelvis was performed with 100 mL Omnipaque 350 intravenous contrast. Automated exposure control and iterative reconstruction technique were employed. The dose-length product was 465.84 mGy-cm. COMPARISON: None FINDINGS: CHEST CT: There is no pneumonia or pleural effusion. The heart size is normal. No pericardial effusion. There is mild thoracic spondylosis. ABDOMEN/PELVIS CT: The liver, gallbladder, spleen, pancreas, adrenal glands, and right kidney are normal. There are cysts in left kidney measuring up to 10 mm. There are no dilated loops of bowel. The appendix is normal. There are no pathologically enlarged lymph nodes. There is no free intraperitoneal fluid. There is mild osteoarthritis of the hips. IMPRESSION: 1. No etiology for the patient's symptoms. Reviewed, dictated and finalized at location E. Magnetic Resonance Report Signed Patient: Carla Bhatia : 1985 MR#: [id number] Age: 40 Acct:[id number] Loc: [facility] 226[facility] ADM Date: 08/28/[address]: Rene Buchanan M.D. Ordering Physician: Dionne Way APRN Date of Service: 08/30/25 Procedure(s): MR brain/brain stem wo con Accession Number(s): [id number] cc: Javon Buchanan MD; Klever Carter MD; Dionne Way APRN~ EXAMINATION: MR brain/brain stem wo con DATE: 08/30/2025 10:21 INDICATION: Left-sided migraine headache. Left-sided numbness. TECHNIQUE: Magnetic resonance imaging (MRI) of the brain and brainstem was performed without intravenous contrast. COMPARISON: None. FINDINGS: There are scattered areas of nonspecific increased T2-weighted signal intensity in the cerebral white matter. There is no intracranial hemorrhage, acute infarction, or abnormal intracranial mass lesion. The ventricles are normal in size. The orbits are normal. There is mild mucosal thickening in the paranasal sinuses. The mastoid air cells are normal. IMPRESSION: 1. Mild nonspecific cerebral white matter disease. The differential diagnosis includes premature chronic small vessel ischemic disease (especially if the patient has cardiovascular risk factors), demyelinating disease such as multiple sclerosis, drug abuse, vasculitis, or reactive astrocytosis (gliosis) secondary to nonspecific etiology. Reviewed, dictated and finalized at location E. Labs on day of discharge: Labs from last 24 hours 08/30/25 05:21 WBC 12.6 H RBC 4.83 Hgb 14.7 Hct 45.1 MCV 93.4 MCH 30.4 MCHC 32.6 RDW 13.1 Plt Count 359 MPV 9.5 Immature Gran % (Auto) 0.5 H Neut % (Auto) 66.6 Lymph % (Auto) 27.3 [place] % (Auto) 4.1 Eos % (Auto) 1.0 Baso % (Auto) 0.5 Lymph # (Auto) 3.42 [place] # (Auto) 0.51 Eos # (Auto) 0.13 Baso # (Auto) 0.06 Abs Immat Gran (auto) 0.06 H Absolute Neuts (auto) 8.37 H Absolute Nucleated RBC 0.00 Nucleated RBC % 0.0 Sodium 141 Potassium 4.1 Chloride 107 Carbon Dioxide 25 Anion Gap 9 BUN 20 H D Creatinine 0.85 Estim Creat Clear Calc 76 Estimated GFR > 60 Glucose 95 Calculated Osmolality 294 Calcium 9.4 Total Bilirubin 0.7 AST 35 ALT 20 Alkaline Phosphatase 61 Total Protein 10.0 H Albumin 4.9 Discharge Plan Discharge Attending physician on discharge: Rene Buchanan Consulting providers: Dionne Way; Torey Davila; Mata Addison; Ruddy Moreno V. Discharging Clinician: Dionne Way Patient Disposition: Home Activity: as tolerated Diet: as tolerated Discharge Instructions: Please ask your PCP about medication to help with your anxiety such as Zoloft or Lexapro. Please schedule an appointment with Neurology to follow up on the results of your brain MRI showing small vessel changes. You can request a copy of the images from medical records or the Neurologist can request images of your Brain MRI that was completed here. Patient Instructions: Antibiotic Form, Lorazepam (By mouth), Migraine Headache (GEN), Urinary Tract Infection in Older Adults (DC) Patient Language: Salvadorean Stand Alone Forms: General Discharge Information Follow-up/Referrals: Klever Carter MD [Primary Care Provider, Internal Medicine] Referral Note: call for an appt to be seen within 1-2 weeks of discharge Discharge Medications: New lorazepam 0.5 mg Tablet 0.5 mg PO Q8H PRN (Reason: Anxiety) Qty: 10 0RF sumatriptan succinate [Imitrex] 50 mg tablet See Rx Instructions .ROUTE .COMPLEX Qty: 10 0RF Rx Instructions: take 1 tab at onset of headache; if no relief may repeat 1 tab after at least 2 hrs; max = 4 tabs/24 hr Continued tacrolimus 0.1 % ointment 1 applic TOPICAL Q12H PRN (Reason: eczema) Date of admission: 08/28/25 21:21 Primary Care Provider: Klever Carter Admitting Provider: Rene Buchanan Attending physician on admission: Rene Buchanan Condition: Stable Quality VTE Prophylaxis VTE prophylaxis: pharmacologic ordered
--- NOTE | 2025-08-30 17:40 | PC.NURSE ---
Discharge instruction, medications and side effect education discussed with emphasis placed on taking Lorazepam and driving. Discussed making follow up PCP appointment and Neurology appointment to follow up on MRI results. Informed patient to ask Radiology to print a disc of MRI for cross reference and comparison if she should obtain another MRI from specialist. Patient voiced understanding. Patient walked out of facility per her preference along side her significant other to personal vehicle in route to home. She exhibited no distress at time of discharge.
--- NOTE | 2025-09-02 09:28 | PC.NURSE ---
Discharge call back complete, no questions regarding dc instructions or medications
== END 2025-08-30 17:00 | disposition home or self-care (01) ==
LOC: CHSED 21:21 → CHS2ND 21:41
PROVIDERS: Nurse Practitioner Adult Health; Admitting Provider Internal Medicine; Emergency Provider Emergency Medicine; PCP Internal Medicine; Visit Provider Internal Medicine
DX: N39.0 Urinary tract infection, site not specified (principal); D72.829 Elevated white blood cell count, unspecified; E87.20 Acidosis, unspecified; F41.9 Anxiety disorder, unspecified; E86.0 Dehydration; E87.6 Hypokalemia; R29.898 Other symptoms and signs involving the musculoskeletal system; R29.818 Other symptoms and signs involving the nervous system; Z87.891 Personal history of nicotine dependence; Z20.822 Contact with and (suspected) exposure to COVID-19
CPT/HCPCS: 36415; 70551; 71045; 71260; 74177; 80053; 81003; 81025; 83036; 83605; 84439; 84443; 84484; 84703; 85025; 87040; 87637; 93005; 96360; 96361; 96365; 99285; A9270; G0378; J0696; J7030; Q9967